=== PATIENT | male | born 1975 | race Caucasian/White ===

== ENCOUNTER → 2017-10-21 | Outpatient (CLI) | payer OTHER ==
--- NOTE | 2017-10-23 09:26 | MR ---
EXAMINATION TYPE: MR brain/cspine wo DATE OF EXAM: 10/21/2017 COMPARISON: Outside brain MRI April 29, 2013. Outside MRI cervical spine July 29, 2012. HISTORY: Headache unusual duration and / Cervicalgia per order. Headache with chronic neck pain for 5 to 6 years causing pain or weakness into left arm per patient. Migraine headaches with left-sided d izziness per patient. TECHNIQUE: Multiplanar, multisequence imaging of the cervical spine, brain and brainstem are all perf ormed without IV contrast. FINDINGS: BRAIN: Diffusion weighted images demonstrate no evidence of a recent infarct or other diffusion abnormality. There is no worrisome extra-axial fluid collection. The ventricular system and cisternal spaces are normal in size and appearance. The brain volume is age appropriate. There are few scattered foci of T2 hyperintensity seen throughout the white matter bilaterally. Approximately 10-15 scattered lesions are identified on current study with slight progression in size and number of lesions felt present s [place] prior study predominantly in the superficial and deep white matter. Largest measures 5 mm long a xis left frontal deep white matter axial image 21 more prominent versus prior. Midline structures demonstrate normal morphology. The craniocervical junction appears within normal limits. Normal vascular flow voids are present. Dominant left vertebral artery is redemonstrated. The visualized sinuses are clear and the globes are intact. IMPRESSION: Mild nonspecific white matter changes with slight progression from prior MRI. Findings ma y reflect altered vascular mechanics related to product of migraine headaches. C-SPINE: FINDINGS: Sagittal images of the cervical spine show the craniocervical junction to remain within nor mal limits. There is 1 cm mucous retention cyst or polyp in the inferior left maxillary sinus redemo nstrated seen better on prior brain MRI. The cervical and upper thoracic spinal cord is normal in cou rse, caliber, and signal. Vertebral alignment is stable and slightly straightened. The vertebral bod y and intravertebral disk heights are normal. Small posterior disc herniation C4-C5 and C5-C6 level m ildly efface the anterior thecal sac on sagittal images is not significantly changed from prior. The bone marrow signal intensity is within normal limits. No significant spurring is present. Axial images show the C2-C3 and C3-C4 levels to remain within normal limits.. Axial images at C4-C5 level redemonstrate broad disc bulges mildly effacing anterior thecal sac, bila teral neural foramina are perhaps mildly narrowed at C5-C6 level on current study. Axial images at C6-C7 and C7-T1 levels are felt to remain within normal limits. IMPRESSION: Straightening of cervical spine with mild degenerative changes mid cervical spine redemon strated, some new mild bilateral neural foraminal narrowing C5-C6 level is felt present.
== END | disposition home or self-care (01) ==
LOC: RADMRIMAIN 07:34
PROVIDERS: ATTEND Psychiatry & Neurology Pain Medicine
DX: M47.812 Spondylosis without myelopathy or radiculopathy, cervical region (principal); M43.8X2 Other specified deforming dorsopathies, cervical region; R90.89 Other abnormal findings on diagnostic imaging of central nervous system; R51 Headache
CPT/HCPCS: 70551; 72141

== ENCOUNTER → 2018-01-26 | Outpatient (CLI) | payer OTHER | END | disposition home or self-care (01) | LOC: LABWHC1 08:02 | PROVIDERS: ATTEND Psychiatry & Neurology Pain Medicine | DX: Z53.9 Procedure and treatment not carried out, unspecified reason (principal) ==